=== PATIENT | male | born 1950 | race Caucasian/White ===

== ENCOUNTER 2021-11-12 09:43 | Outpatient (CLI) | payer MEDICARE, OTHER, SELFPAY ==
[2021-11-12 14:18] LABS: Creatinine Urine 85.1 mg/dL
[2021-11-12 14:21] LABS: Microalbumin Creatinine Ratio 180 mg/g (0-30); Microalbumin Urine 16 mg/dL
[2021-11-12 14:25] LABS: Albumin* 4.1 g/dL (3.3-5.0); Chloride* 105 mmol/L (96-114); Potassium* 4.3 mmol/L (3.6-5.1); Sodium* 137 mmol/L (135-149)
[2021-11-12 14:28] LABS: Blood Urea Nitrogen* 35 mg/dL (7-30); Carbon Dioxide* 22 mmol/L (20-32); Creatinine* 1.7 mg/dL (0.5-1.5); Glucose* 329 mg/dL (60-115)
[2021-11-12 14:29] LABS: Calcium* 9.8 mg/dL (8.4-10.6); Cholesterol* 145 mg/dL (90-199); HDL Cholesterol* 38 mg/dL (>=40); LDL Cholesterol Calculated 65 mg/dL (<100); Phosphorus* 3.5 mg/dL (2.5-4.5); Triglycerides* 209 mg/dL (40-149); Uric Acid* 4.6 mg/dL (2.2-8.4)
[2021-11-12 14:33] LABS: Iron* 68 ug/dL (49-181)
[2021-11-12 14:42] LABS: Percent Iron Saturation 21 % (20-50); Total Iron Binding Capacity 324 ug/dL (261-462)
[2021-11-12 15:09] LABS: Ferritin* 78.4 ng/mL (17.9-464.0)
== END 2021-11-12 09:44 | disposition home or self-care (01) ==
PROVIDERS: PCP Physician Assistant Medical; Visit Provider Internal Medicine Nephrology
DX: I12.9 Hypertensive chronic kidney disease with stage 1 through stage 4 chronic kidney disease, or unspecified chronic kidney disease (principal); E11.22 Type 2 diabetes mellitus with diabetic chronic kidney disease; N18.31 Chronic kidney disease, stage 3a; E78.5 Hyperlipidemia, unspecified; D64.9 Anemia, unspecified; M16.9 Osteoarthritis of hip, unspecified; N30.00 Acute cystitis without hematuria; B95.7 Other staphylococcus as the cause of diseases classified elsewhere
CPT/HCPCS: 80061; 80069; 82043; 82570; 82728; 83540; 83550; 84550; 87086; 87186

== ENCOUNTER 2022-02-10 09:30 | Outpatient (CLI) | payer MEDICARE, OTHER, SELFPAY ==
[2022-02-10 13:33] LABS: Chloride* 105 mmol/L (96-114)
[2022-02-10 13:34] LABS: Potassium* 4.1 mmol/L (3.6-5.1); Sodium* 139 mmol/L (135-149)
[2022-02-10 13:36] LABS: Blood Urea Nitrogen* 28 mg/dL (7-30); Carbon Dioxide* 24 mmol/L (20-32); Cholesterol* 139 mg/dL (90-199); Creatinine* 1.4 mg/dL (0.5-1.5); Estimated Glomerular Filt Rate 53 ml/min
[2022-02-10 13:37] LABS: Calcium* 9.5 mg/dL (8.4-10.6); Glucose* 272 mg/dL (60-115); Phosphorus* 3.6 mg/dL (2.5-4.5); Triglycerides* 222 mg/dL (40-149); Uric Acid* 5.1 mg/dL (2.2-8.4)
[2022-02-10 13:38] LABS: HDL Cholesterol* 38 mg/dL (>=40); LDL Cholesterol Calculated 57 mg/dL (<100)
[2022-02-10 13:51] LABS: Creatinine Urine 102.1 mg/dL
[2022-02-10 13:54] LABS: Microalbumin Creatinine Ratio 120 mg/g (0-30); Microalbumin Urine 13 mg/dL
== END 2022-02-10 09:31 | disposition home or self-care (01) ==
PROVIDERS: PCP Physician Assistant Medical; Visit Provider Internal Medicine Nephrology
DX: D64.9 Anemia, unspecified (principal); E78.5 Hyperlipidemia, unspecified; I10 Essential (primary) hypertension; N18.30 Chronic kidney disease, stage 3 unspecified; E11.9 Type 2 diabetes mellitus without complications; N30.00 Acute cystitis without hematuria; B95.7 Other staphylococcus as the cause of diseases classified elsewhere
CPT/HCPCS: 80061; 80069; 82043; 82570; 84550; 87086; 87186

== ENCOUNTER 2022-06-02 08:44 | Outpatient (CLI) | payer MEDICARE, OTHER, SELFPAY ==
[2022-06-02 14:37] LABS: Alanine Aminotransferase* 21 U/L (4-50)
[2022-06-02 14:41] LABS: Creatinine Urine 107.2 mg/dL
[2022-06-02 14:53] LABS: Microalbumin Creatinine Ratio 220 mg/g (0-30); Microalbumin Urine 24 mg/dL
[2022-06-02 15:09] LABS: Albumin* 4.1 g/dL (3.3-5.0)
[2022-06-02 15:10] LABS: Chloride* 105 mmol/L (96-114); Sodium* 140 mmol/L (135-149)
[2022-06-02 15:12] LABS: Aspartate Amino Transferase* 40 U/L (12-35); Blood Urea Nitrogen* 24 mg/dL (7-30); Carbon Dioxide* 27 mmol/L (20-32); Cholesterol* 168 mg/dL (90-199); Creatinine* 1.3 mg/dL (0.5-1.5); Estimated Glomerular Filt Rate 58 ml/min; Glucose* 220 mg/dL (60-115)
[2022-06-02 15:13] LABS: Calcium* 9.2 mg/dL (8.4-10.6); HDL Cholesterol* 46 mg/dL (>=40); LDL Cholesterol Calculated 80 mg/dL (<100); Phosphorus* 3.8 mg/dL (2.5-4.5); Potassium* 4.4 mmol/L (3.6-5.1); Triglycerides* 211 mg/dL (40-149); Uric Acid* 4.2 mg/dL (2.2-8.4)
[2022-06-02 15:43] LABS: PSA Screen* 1.09 ng/mL (0.10-4.00)
== END 2022-06-02 08:45 | disposition home or self-care (01) ==
PROVIDERS: PCP Physician Assistant Medical; Visit Provider Internal Medicine Nephrology
DX: E78.5 Hyperlipidemia, unspecified (principal); D64.9 Anemia, unspecified; Z12.5 Encounter for screening for malignant neoplasm of prostate; I12.9 Hypertensive chronic kidney disease with stage 1 through stage 4 chronic kidney disease, or unspecified chronic kidney disease; E11.22 Type 2 diabetes mellitus with diabetic chronic kidney disease; N40.1 Benign prostatic hyperplasia with lower urinary tract symptoms; N13.8 Other obstructive and reflux uropathy; N18.31 Chronic kidney disease, stage 3a; E11.65 Type 2 diabetes mellitus with hyperglycemia; R82.90 Unspecified abnormal findings in urine
CPT/HCPCS: 80061; 80069; 82043; 82570; 84153; 84450; 84460; 84550; 87086; 87205

== ENCOUNTER 2022-08-06 09:30 | Outpatient (CLI) | payer MEDICARE, OTHER, SELFPAY | END 2022-08-06 09:31 | disposition home or self-care (01) | LOC: NFLDREF 08-07 11:08 | PROVIDERS: PCP Physician Assistant Medical; Referring Provider Physician Assistant Medical; Visit Provider Physician Assistant Medical | DX: N39.0 Urinary tract infection, site not specified (principal) | CPT/HCPCS: 87086 ==

== ENCOUNTER 2022-09-04 09:35 | Outpatient (CLI) | payer MEDICARE, OTHER, SELFPAY ==
[2022-09-04 12:35] LABS: Chloride* 105 mmol/L (96-114)
[2022-09-04 12:36] LABS: Albumin* 3.5 g/dL (3.3-5.0); Potassium* 4.2 mmol/L (3.6-5.1); Sodium* 137 mmol/L (135-149)
[2022-09-04 12:39] LABS: Blood Urea Nitrogen* 24 mg/dL (7-30); Carbon Dioxide* 26 mmol/L (20-32); Cholesterol* 143 mg/dL (90-199); Creatinine* 1.3 mg/dL (0.5-1.5); Estimated Glomerular Filt Rate 58 ml/min; Triglycerides* 161 mg/dL (40-149)
[2022-09-04 12:40] LABS: Calcium* 8.9 mg/dL (8.4-10.6); Creatinine Urine 85.8 mg/dL; HDL Cholesterol* 42 mg/dL (>=40); LDL Cholesterol Calculated 69 mg/dL (<100); Phosphorus* 3.1 mg/dL (2.5-4.5)
[2022-09-04 13:01] LABS: Glucose* 388 mg/dL (60-115)
[2022-09-04 13:36] LABS: Microalbumin Creatinine Ratio 990 mg/g (0-30); Microalbumin Urine 85 mg/dL
== END 2022-09-04 09:36 | disposition home or self-care (01) ==
PROVIDERS: PCP Physician Assistant Medical; Visit Provider Internal Medicine Nephrology
DX: E11.9 Type 2 diabetes mellitus without complications (principal); E78.5 Hyperlipidemia, unspecified; I10 Essential (primary) hypertension; N18.30 Chronic kidney disease, stage 3 unspecified; N39.0 Urinary tract infection, site not specified; D64.9 Anemia, unspecified
CPT/HCPCS: 80061; 80069; 82043; 82570; 84550; 87086; 87186

== ENCOUNTER 2022-11-18 08:10 | Emergency (ER) | payer MEDICARE, OTHER, SELFPAY ==
[2022-11-18 08:16] VITALS: PULSE 119; O2SAT 98; BMI 27.4
[2022-11-18 08:24] VITALS: BP 151/77; RESP 24; O2SAT 98
--- NOTE | 2022-11-18 08:25 | ED_ITS ---
HPI - Male Genitourinary General Time Seen by Provider: 08:25 Date Seen: 11/18/22 Chief complaint: Urogenital Problems, Male Stated complaint: unable to urinate 1.5 week Time Seen by Provider: 11/18/22 08:24 Source: patient, RN notes reviewed and old records reviewed Mode of arrival: ambulatory Limitations: no limitations History of Present Illness HPI Narrative: Patient is a 72-year-old male coming in with urinary concerns. He is a difficult historian and initially states that every time he goes the bathroom he produces a little stool. He is feeling this suprapubic pressure. Feels there was blood in his urine, states he thought he had a kidney stone about 6 weeks ago ended up being a bladder infection. Denies dysuria. Is stating he can urinate at times but at the end of the questioning, do have the sense that he is having difficulty emptying his bladder. Denies any nausea vomiting. No diarrhea. Is feeling warm right now but is having lower abdominal discomfort. He related to nursing staff that he sometimes has to grab his genitals to be able to urinate. He does not have a prior known history of UTIs. Patient is diabetic, is known to have chronic kidney disease stage 3. 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 In review of his records, was last in on 09/24/2022 to clinic with UTI symptoms. He has had staph epidermidis grow on cultures on 09/24/2022, 09/04/2022, 02/10/2022 and 11/12/2021. The most recent sensitivities show him to be resistant to Cipro an oxacillin, intermediate resistance to levofloxacin. He was treated with doxycycline 100 mg twice a day times 10 days. I do see history of balanitis listed in his diagnoses. Related Data Home Medications Medication Instructions Recorded Confirmed albuterol 90 mcg/actuation aerosol 2 spray inhalation 11/12/21 09/24/22 inhaler aspirin 81 mg tablet,delayed mg PO DAILY 11/12/21 09/24/22 release pen needle, diabetic 32 gauge x 11/12/21 09/24/22 (BD Ultra-Fine Amairani Pen Needle) tamsulosin 0.4 mg capsule 0.4 mg PO QHS 02/17/22 11/18/22 insulin glargine 100 unit/mL (3 28 unit subcut .Bedtime 03/18/22 11/18/22 mL) subcutaneous pen Previous Rx's Medication Instructions Recorded blood sugar diagnostic (OneTouch #100 ea 02/03/22 Ultra Test strips) fenofibrate 160 mg tablet 160 mg PO DAILY #90 tabs 03/26/22 losartan 50 mg tablet 50 mg PO DAILY #90 tabs 03/26/22 doxycycline hyclate 100 mg tablet 100 mg PO BID #20 tabs 09/24/22 metformin 1,000 mg tablet 1,000 mg PO BIDWMEAL #180 tabs 09/24/22 atorvastatin 20 mg tablet 20 mg PO .Bedtime #90 tabs 10/01/22 glipizide 10 mg tablet 10 mg PO DAILY #14 tabs 10/30/22 Allergies Allergy/AdvReac Type Severity Reaction Status Date / Time No Known Allergies Allergy Verified 11/18/22 08:31 Review of Systems Status of ROS: Reports: 6 or more systems reviewed and unremarkable except as noted in History and below PFSH PFS Medical History Urinary tract infection ?N39.0 - Urinary tract infection, site not specified (ICD-10) Skin tag ?L91.8 - Other hypertrophic disorders of the skin (ICD-10) Dyspnea (04/10/13) ?R06.00 - Dyspnea, unspecified (ICD-10) Balanitis ?N48.1 - Balanitis (ICD-10) Surgical History History of sinus surgery (01/25/13) ?Z98.890 - Other specified postprocedural states (ICD-10) History of arthroscopy of left knee (01/25/13) ?Z98.890 - Other specified postprocedural states (ICD-10) Family History Other Diabetes High blood pressure Social History Narrative: Does not drink alcohol Does not use illicit drugs Former smoker Smoking Status: Former smoker Do you use any of these nicotine containing products: None How often do you have a drink containing alcohol: never AUDIT-C Alcohol total score: 0 Non-prescribed substance use: denies use service: Yes Exam Const: Vital Signs, click to edit/add: Vital Signs - 24 hr 11/18/22 08:16 11/18/22 08:24 Pulse Rate [Right Pulse Oximeter] 119 H Respiratory Rate 24 Blood Pressure [Ri ght Upper Arm] 151/77 H Pulse Oximetry 98 98 Oxygen Delivery Me thod Room Air Room Air Documenting provider has reviewed patient's vital signs: yes General appearance: cooperative Other: Seems uncomfortable but is certainly very pleasant. HENMT: Common normals: normocephalic, head/scalp atraumatic and hearing grossly normal bilaterally Head and scalp: normocephalic and atraumatic Eye: Common normals: PERRL, EOMs intact bilaterally, conjunctivae normal and no scleral icterus Conjunctiva: conjunctiva(e) normal Pupil: PERRL Neck & C-Spine: Common normals: full ROM, no lymphadenopathy and supple Resp: Common normals: normal respiratory effort, no retractions, no use of accessory muscles and clear to auscultation bilaterally Effort & inspection: able to speak in complete sentences Auscultation: clear to auscultation bilaterally Cardio: Common normals: regular rate, regular rhythm, S1 normal heart sound, S2 normal heart sound, no gallops, no clicks and no murmurs Rate: regular rate Rhythm: regular rhythm Heart sounds: S1 normal and S2 normal GI: Common normals: Normal to inspection, nondistended, normoactive bowel sounds present, soft to palpation and no hepatosplenomegaly Palpation: soft and no hepatosplenomegaly Other: Do palpate suprapubic tenderness and believe he has a distended bladder on palpation, is mildly tender without rebound or guarding. Bladder scan done and looks to be retaining urine, anywhere from 400-700 mL obtain on trials. Course Course Hospital Course: Will get a baseline CBC and basic metabolic panel. Want to ensure no changes in kidney status if there has been urinary retention. Will use Uro jet, place a Umanzor catheter and see how much drains. We will collect urinalysis off this. Reevaluation(s) Time of Reevaluation #1: 09:50 Reevaluation #1: Nursing staff could not pass a Umanzor catheter. Went back in with them when they attempted to pass the Peds catheter. Were able to get that small tube in and did get cloudy urine with sediment in it. We will obtain a urinalysis off this. His skin on his penile shaft has over written the glans, there is only a small opening where there is a little mucopurulent discharge. Was in with nursing staff is they attempted to pass a coude catheter and could not. This patient is likely going to need to have this phimosis opened up, probable underlying infection of the skin on the glans as well as potential strictures in the urethra. Patient admits that it has been some years where the skin of the shaft has over ridden the glans. Have reviewed with in , would like to try to go to [facility] as it is closest if possible. Reviewed that I will contact the ER at [facility], need to see if they have urology capacity care for this patient. Note patient did leak a fair amount of urine around the catheter in our temps to place it, after the pediatric catheter was removed it continued to leak some urine alleviating some of the obstruction. He certainly probably has structural issues with acquired phimosis and probable underlying balanitis. Observing the catheter insertion the likely has strictures or functional issues as well. Consultations Consultation #1: Initially spoke with Dr. Wright ED physician at [facility]. He does have Urology, would except but needs me to talk to the urologist to ensure that they have the capacity to care for this. He provided me with the [id number], spoke with Virgie STEVENS for urology at 1020am, she conferred with urologist Dr. Osborne and they request transfer to ED. Patient last ate last night, advised to NPO as he may require OR if unable to do bedside. Did call back Dr. Wright to let him know plan, he accepts at 1031am. Did order IV doxycycline 100 mg. Do not believe we need to go with vancomycin yet but this could be added in if deemed necessary. Time: 09:54 Vital Signs Vital signs: Initial Vital Signs Pulse Rate 119 H 11/18/22 08:16 Pulse Rhythm Regular 11/18/22 08:16 Pulse Oximetry 98 11/18/22 08:16 Oxygen Delivery Method Room Air 11/18/22 08:16 Vital Signs Pulse Rate 119 H 11/18/22 08:16 Pulse Oximetry 98 11/18/22 08:16 Oxygen Delivery Method Room Air 11/18/22 08:16 Pulse Rate 119 H 11/18/22 08:16 Respiratory Rate 24 11/18/22 08:24 Blood Pressure 151/77 H 11/18/22 08:24 Pulse Oximetry 98 11/18/22 08:24 Oxygen Delivery Method Room Air 11/18/22 08:24 MDM - Male Genitourinary Lab Data Labs: Lab Results 11/18/22 11/18/22 Range/Units 08:55 09:56 WBC 12.58 H (4.50-11.00) K/uL RBC 3.80 L (4.30-5.90) m/uL Hgb 10.7 L (13.5-17.5) gm/dL Hct 33.1 L (37.0-53.0) % MCV 87 (80-100) fL MCH 28 (26-34) pg MCHC 32 (32-36) gm/dL RDW Coeff of Terrie 13.1 (11.5-15.5) % Plt Count 245 (140-440) K/uL Neut % (Auto) 91.3 H (42.0-72.0) % Lymph % (Auto) 4.1 L (20-44) % Victoria % (Auto) 3.7 (0.0-11.0) % Eos % (Auto) 0.2 (0.0-7.0) % Baso % (Auto) 0.2 (0.0-3.0) % Neut # (Auto) 11.50 H (1.7-7.0) K/uL Lymph # (Auto) 0.50 L (0.90-2.90) K/uL Victoria # (Auto) 0.50 (0.00-0.90) K/UL Eos # (Auto) 0.00 (0.00-0.50) K/uL Baso # (Auto) 0.00 (0.00-0.30) K/uL Abs Immat Gran (auto) 0.10 (0.00-0.30) K/uL Imm/Tot Granulo (auto) 0.5 % Sodium 138 (135-149) mmol/L Potassium 4.8 (3.6-5.1) mmol/L Chloride 105 (96-114) mmol/L Carbon Dioxide 18 L (20-32) mmol/L BUN 42 H (7-30) mg/dL Creatinine 1.9 H (0.5-1.5) mg/dL Estimated Creat Clear 32.37 Estimated GFR 37 ml/min Glucose 372 H* (60-115) mg/dL Calcium 9.4 (8.4-10.6) mg/dL Urine Color Light yellow (Yellow) Urine Appearance Cloudy A (Clear) Urine pH 8.5 (5.0-8.5) Ur Specific Garland 1.015 (1.000-1.030) Urine Protein 3+ A (Negative) Urine Glucose (UA) 2+ A (Negative) Urine Ketones Negative (Negative) Urine Blood 2+ A (Negative) Urine Nitrite Negative (Negative) Urine Bilirubin Negative (Negative) Urine Urobilinogen 1.0 (0.2-1.0) Ur Leukocyte Esterase 3+ A (Negative) Urine RBC 2-5 A (0-2) Urine WBC 10-25 A (0-5) Ur Squamous Epith Cells Few (None-Few) Triple Phos Crystals Few A (None) Amorphous Sediment Moderate A (None) Urine Bacteria Many A (None) Urine Mucus Few A (None) Discharge Plan Discharge Clinical Impression: Urinary tract infection, Acquired phimosis of penis, Acute urinary retention, Acute on chronic kidney failure Patient Disposition: er Acute Care Hospital Discharge Location: [facility] Prescriptions: No Action aspirin 81 mg tablet,delayed release (DR/EC) PO DAILY albuterol 90 mcg/actuation aerosol 2 spray inhalation Rx Instructions: Use 15 minutes before exercise as needed. (DME) pen needle, diabetic [BD Ultra-Fine Amairani Pen Needle] 32 gauge x 5/32 needle See Rx Instructions .Route Rx Instructions: As directed tamsulosin 0.4 mg capsule 0.4 mg PO QHS insulin glargine 100 unit/mL (3 mL) insulin pen 28 unit subcut .Bedtime Rx Instructions: inject 24 units daily (DME) OneTouch Ultra Test Strip See Rx Instructions .Route Qty: 100 3RF Rx Instructions: tid fenofibrate 160 mg tablet 160 mg PO DAILY Qty: 90 3RF Rx Instructions: WITH FOOD losartan 50 mg tablet 50 mg PO DAILY Qty: 90 3RF metformin 1,000 mg tablet 1,000 mg PO BIDWMEAL Qty: 180 1RF doxycycline hyclate 100 mg tablet 100 mg PO BID Qty: 20 0RF atorvastatin 20 mg tablet 20 mg PO .Bedtime Qty: 90 3RF glipizide 10 mg tablet 10 mg PO DAILY Qty: 14 0RF Follow Up/Referrals: Gordo Quiroga PA-C [Primary Care Provider] -
[2022-11-18] MEDS: lidocaine HCL 2 % JELLY (TOP) STERILE 6 ML UR (08:53)
[2022-11-18 09:03] LABS: Basophils Percent Auto 0.2 % (0.0-3.0); Eosinophils Percent Auto 0.2 % (0.0-7.0); Hematocrit 33.1 % (37.0-53.0); Hemoglobin* 10.7 gm/dL (13.5-17.5); Immature Granulocytes Pct Auto 0.5 %; Lymphocytes Percent Auto 4.1 % (20-44); Mean Corpuscular HGB Conc 32 gm/dL (32-36); Mean Corpuscular Hemoglobin 28 pg (26-34); Mean Corpuscular Volume 87 fL (80-100); Monocytes Percent Auto 3.7 % (0.0-11.0); Neutrophils Percent Auto 91.3 % (42.0-72.0); Platelet Count* 245 K/uL (140-440); RDW Coefficient of Variation % 13.1 % (11.5-15.5); White Blood Count* 12.58 K/uL (4.50-11.00)
[2022-11-18 09:08] LABS: Slide Review Reflex No
[2022-11-18 09:18] LABS: Chloride* 105 mmol/L (96-114); Sodium* 138 mmol/L (135-149)
[2022-11-18 09:19] LABS: Potassium* 4.8 mmol/L (3.6-5.1)
[2022-11-18 09:21] LABS: Carbon Dioxide* 18 mmol/L (20-32); Creatinine* 1.9 mg/dL (0.5-1.5); Est. Creatinine Clearance* 32.37; Estimated Glomerular Filt Rate 37 ml/min
[2022-11-18 09:22] LABS: Blood Urea Nitrogen* 42 mg/dL (7-30); Calcium* 9.4 mg/dL (8.4-10.6)
--- NOTE | 2022-11-18 09:24 | ED.NURSE ---
tried putting a 16 and 18 catheter in pt, unable to insert the catheter because of a blockage of potential hardened sediment.
[2022-11-18 09:27] LABS: Glucose* 372 mg/dL (60-115)
--- NOTE | 2022-11-18 09:55 | ED.NURSE ---
Straight cathed using a baby catheter, drained approx 300ml out of his bladder.
[2022-11-18 09:58] LABS: Appearance Urine Cloudy (Clear); Bilirubin Urine Negative (Negative); Blood Urine 2+ (Negative); Color Urine Light yellow (Yellow); Glucose Urine 2+ (Negative); Ketones Urine Negative (Negative); Leukocyte Esterase Urine 3+ (Negative); Nitrite Urine Negative (Negative); Protein Urine 3+ (Negative); Specific Gravity Urine 1.015 (1.000-1.030); pH Urine 8.5 (5.0-8.5)
[2022-11-18 10:11] LABS: Bacteria Urine Many; Squamous Epithelial Cell Urine Few (None-Few)
[2022-11-18 10:12] LABS: Amorphous Sediment Urine Moderate; Mucus Urine Few
[2022-11-18 10:13] LABS: Triple Phosphate Crystal Urine Few
[2022-11-18] MEDS: DOXYCYCLINE HYCLATE 100 MG in 0.9 % SODIUM CHLORIDE Mini-bag 100 ML IVPB (11:05)
--- NOTE | 2022-11-18 11:15 | ED.NURSE ---
Pt attempted going to the bathroom a couple more times within the last hour. Reports a stringy substance came out, but no ability to actually urinate.
--- NOTE | 2022-11-18 11:16 | ED.NURSE ---
Pt report handed off to EMS, pt discharged to [facility] ER.
== END 2022-11-18 11:19 | disposition short-term general hospital (02) ==
PROVIDERS: Emergency Provider Family Medicine; PCP Physician Assistant Medical
DX: N39.0 Urinary tract infection, site not specified (principal); N47.1 Phimosis; N17.9 Acute kidney failure, unspecified
CPT/HCPCS: 36415; 51798; 80048; 81001; 85025; 87086; 87186; 99284

== ENCOUNTER 2022-11-18 11:08 | Outpatient (CLI) | payer MEDICARE, OTHER, SELFPAY | END 2022-11-18 11:09 | disposition home or self-care (01) | LOC: AMB 11-19 09:09 | PROVIDERS: PCP Physician Assistant Medical; Visit Provider Family Medicine | DX: R33.9 Retention of urine, unspecified (principal) | CPT/HCPCS: A0425; A0428 ==